=== PATIENT | male | born 1955 | race Two or more races ===

== ENCOUNTER 2019-09-18 10:28 | Emergency (ER) | payer SELFPAY ==
[~2019-09-18] VITALS: Ht 167.6 cm; Wt 66.2 kg
[2019-09-18] MEDS ORDERED: IV NS 0.9% 1,000 ML BAG IV ONE (11:00)
[2019-09-18 11:19] LABS: BASOPHILS # (AUTO) 0.1 /CMM (0.0-0.2); BASOPHILS % (AUTO) 0.9 % (0.0-2.0); EOSINOPHILS % (AUTO) 0.9 % (0.0-6.0); HEMATOCRIT 46 % (39-51); HEMOGLOBIN 15.2 g/dL (13.5-17.5); LYMPHOCYTES # (AUTO) 2.5 /CMM (0.8-4.8); LYMPHOCYTES % (AUTO) 31.5 % (20.0-44.0); MEAN CORPUSCULAR HGB CONC 34 g/dl (31.0-36.0); MEAN CORPUSCULAR VOLUME 94 fL (80-96); MONOCYTES # (AUTO) 0.3 /CMM (0.1-1.30); NEUTROPHILS # (AUTO) 4.9 /CMM (1.8-8.9); NEUTROPHILS % (AUTO) 62.7 % (43.0-81.0); PLATELET COUNT (AUTO) 415 /CMM (150-450); RED BLOOD CELL COUNT(AUTO) 4.85 MIL/uL (4.5-6.0); WHITE BLOOD COUNT (AUTO) 7.8 K/uL (4.3-11.0)
[2019-09-18 11:22] LABS: APPEARANCE,URINE Clear (CLEAR); BILIRUBIN,URINE Negative (NEGATIVE); BLOOD, URINE Moderate Ery/uL (NEGATIVE); COLOR,URINE Yellow (YELLOW); KETONES,URINE 40 (NEGATIVE); LEUKOCYTE ESTERASE ,URINE Negative (NEGATIVE); NITRITE, URINE Negative (NEGATIVE); PH,URINE 6.5 (5.0-8.0); PROTEIN,URINE 30 mg/dl (NEGATIVE); UGLUCOSE 500 MG/DL mg/dL (NEGATIVE); UROBILINOGEN,URINE 0.2 EU/dL (0.2)
[2019-09-18 11:24] LABS: BACTERIA,URINE Rare /HPF (None Seen); SQUAMOUS EPITHELIAL CELL,UR None Seen /HPF (None Seen); WBC,URINE 0-2 /HPF (0-3)
[2019-09-18 11:35] LABS: ALANINE AMINOTRANSFERASE 191 U/L (12-78); ALBUMIN 3.8 g/dL (3.4-5.0); ALKALINE PHOSPHATASE 100 U/L (46-116); ASPARTATE AMINOTRANSFERASE 285 U/L (15-37); BILIRUBIN,DIRECT 0.3 mg/dL (0.0-0.2); BILIRUBIN,TOTAL 0.6 mg/dL (0.2-1.0); CALCIUM, SERUM 8.2 mg/dL (8.5-10.1); CARBON DIOXIDE 22 mmol/L (21-32); CHLORIDE 98 mmol/L (98-107); LIPASE 785 U/L (73-393); POTASSIUM 3.9 mmol/L (3.5-5.1); SODIUM SERUM 139 mmol/L (136-145); UREA NITROGEN, BLOOD 6 mg/dL (7-18)
[2019-09-18 11:37] LABS: GLUCOSE 482 mg/dL (74-106)
--- NOTE | 2019-09-18 11:45 | NUR ---
blood sugar checked 465 MD made aware.
--- NOTE | 2019-09-18 12:30 | NUR ---
ASSUMED CARE OF PT, [id number], etoh, BS high reading on the gluco meter, NS 1L infusing, PT IN BED SLEEPING, -SOB, NAD NOTED, PENDING MD CINTRON
[2019-09-18] MEDS ORDERED: IV NS 0.9% 1,000 ML IV ONE (13:30)
[2019-09-18 14:30] VITALS: BP 158/99
--- NOTE | 2019-09-18 15:01 | NUR ---
Patient given written and verbal discharge instructions. Patient verbalizes understanding of instructions. Patient is ambulatory with steady gait. Refuses offer of assisted placement. Patient given list of available shelters in surrounding area.
== END 2019-09-18 15:01 | disposition home or self-care (01) ==
LOC: ER 10:28
DX: S01.511A Laceration without foreign body of lip, initial encounter (principal); E11.65 Type 2 diabetes mellitus with hyperglycemia; F10.129 Alcohol abuse with intoxication, unspecified; Y90.8 Blood alcohol level of 240 mg/100 ml or more; W01.0XXA Fall on same level from slipping, tripping and stumbling without subsequent striking against object, initial encounter; Y93.89 Activity, other specified; Y92.89 Other specified places as the place of occurrence of the external cause; Y99.8 Other external cause status
CPT/HCPCS: 36415; 80048; 80076; 80307; 81001; 82962 ×3; 83690; 84484; 85025; 96360; 96361; 99283; J7030; 81000-TC; G0480